=== PATIENT | female | born 1960 | race Caucasian/White ===

== ENCOUNTER 2017-02-11 20:10 | Emergency (ER) | payer MEDICAID ==
[~2017-02-11] VITALS: Ht 160 cm; Wt 57.9 kg
[~2017-02-11 20:10] MED LIST: ASPI-621 PO; ATOR10TA9 PO; ATOR20TA9 PO; CHOL10002 PO; DULO30CA2 PO; EMPA25TA PO; GABA300C10 PO; HYDR-3138 PO; INSU100I11 SQ-INSULIN; INSU100I13 SQ-INSULIN; INSU100V8 SQ; INSU300I SQ; LINA5TAB PO; METF10002 PO; METH750T2 PO; MULT-717 PO; OMEP20CA9 PO; OXYC-223 PO; SITA25TA PO; VITA1TAB19 PO
[2017-02-11] MEDS ORDERED: ONDANSETRON 2MG/ML, 2ML IVPush ONE (20:30)
[2017-02-11] MEDS ORDERED: SODIUM CHLORIDE FLUSH 10ML SYR IVF ONE (20:30)
[2017-02-11] MEDS ORDERED: SODIUM CHLORIDE 0.9% 1,000ML IVBOLUS ONE (20:30)
[2017-02-11] MEDS ORDERED: ONDANSETRON 2MG/ML, 2ML ONE (20:31)
[2017-02-11 21:09] LABS: ASPARTATE AMINO TRANSFERASE 22 U/L (15-37); BLOOD UREA NITROGEN 9 mg/dL (7-18)
[2017-02-11] MEDS ORDERED: KETOROLAC 30 MG/1 ML IVPush ONE (22:00)
[2017-02-11 22:41] VITALS: BP 151/72
[2017-02-11] MEDS ORDERED: KETOROLAC 30 MG/1 ML ONE (23:03)
== END 2017-02-11 22:44 | disposition home or self-care (01) ==
LOC: ED 22:32
DX: R11.2 Nausea with vomiting, unspecified (principal); R10.9 Unspecified abdominal pain; E10.65 Type 1 diabetes mellitus with hyperglycemia; I10 Essential (primary) hypertension; E78.00 Pure hypercholesterolemia, unspecified; Z86.73 Personal history of transient ischemic attack (TIA), and cerebral infarction without residual deficits
CPT/HCPCS: 36415; 71020; 74176; 80053; 81003; 82010; 82800; 82962; 85025; 96361; 96374; 96375; 99285; J1885; J2405; J7030

== ENCOUNTER 2017-07-02 09:24 | Emergency (ER) | payer MEDICAID ==
[~2017-07-02] VITALS: Ht 160 cm; Wt 57.7 kg
[~2017-07-02 09:24] MED LIST changes: -HYDR-3138 PO; +HYDR-3237 PO; -OXYC-223 PO; +OXYC-306 PO
[2017-07-02] MEDS ORDERED: OXYcodone/APAP 5/325MG TABLET PO ONE (10:00)
[2017-07-02] MEDS ORDERED: KETOROLAC 30 MG/1 ML IM ONE (10:00)
[2017-07-02] MEDS ORDERED: OXYcodone/APAP 5/325MG TABLET ONE (10:08)
[2017-07-02] MEDS ORDERED: KETOROLAC 30 MG/1 ML ONE (10:08)
[2017-07-02] MEDS ORDERED: HYDROmorphone 1 MG/ML, 1ML IM ONE (11:00)
[2017-07-02] MEDS ORDERED: ONDANSETRON ODT 4 MG PO ONE (11:00)
[2017-07-02] MEDS ORDERED: ONDANSETRON ODT 4 MG ONE (11:15)
[2017-07-02] MEDS ORDERED: HYDROmorphone 1 MG/ML, 1ML ONE (11:16)
[2017-07-02 11:40] VITALS: BP 138/87
== END 2017-07-02 12:05 | disposition home or self-care (01) ==
LOC: ED 11:32
DX: S20.211A Contusion of right front wall of thorax, initial encounter (principal); W22.8XXA Striking against or struck by other objects, initial encounter; Y93.89 Activity, other specified; Y92.098 Other place in other non-institutional residence as the place of occurrence of the external cause; Y99.8 Other external cause status; Z86.73 Personal history of transient ischemic attack (TIA), and cerebral infarction without residual deficits
CPT/HCPCS: 71020; 72072; 96372; 99284; J1170; J1885; Q0162

== ENCOUNTER 2017-07-10 18:18 | Observation (INO) | payer MEDICAID ==
[~2017-07-10] VITALS: Ht 160 cm; Wt 61.5 kg
[2017-07-10] MEDS ORDERED: ONDANSETRON 2MG/ML, 2ML ONE (19:25)
[2017-07-10] MEDS ORDERED: HYDROmorphone 1 MG/ML, 1ML ONE ×3 (19:25→22:46)
[2017-07-10] MEDS ORDERED: HYDROmorphone 1 MG/ML, 1ML IV ONE (19:30)
[2017-07-10] MEDS ORDERED: SODIUM CHLORIDE FLUSH 10ML SYR IVF ONE (19:30)
[2017-07-10] MEDS ORDERED: ONDANSETRON 2MG/ML, 2ML IVPush ONE (19:30)
[2017-07-10] MEDS ORDERED: SODIUM CHLORIDE 0.9% 1,000ML IVBOLUS ONE (19:30)
[2017-07-10 19:52] LABS: HEMATOCRIT 39.7 % (34.6-47.8); HEMOGLOBIN 12.8 g/dL (11.7-16.4); WHITE BLOOD COUNT 11.6 x10^3/uL (3.4-10)
[2017-07-10 20:01] LABS: ASPARTATE AMINO TRANSFERASE 27 U/L (15-37); BLOOD UREA NITROGEN 15 mg/dL (7-18)
[2017-07-10] MEDS ORDERED: HYDROmorphone 1 MG/ML, 1ML IM ONE (21:00)
[2017-07-10] MEDS ORDERED: HYDROmorphone 1 MG/ML, 1ML IVPush PRN (22:30)
[2017-07-10] MEDS ORDERED: CEFTRIAXONE PMX 1GM/50ML 50 ML IV ONE (22:30)
[2017-07-10] MEDS: CEFTRIAXONE PMX 1GM/50ML 50 ML IV SCH (22:30)
[2017-07-10] MEDS ORDERED: AZITHROMYCIN 500 MG in SODIUM CHLORIDE 0.9% 250 ML IV ONE (22:30)
[2017-07-10] MEDS ORDERED: CEFTRIAXONE PMX 1GM/50ML 50 ML ONE (22:46)
[2017-07-10] MEDS ORDERED: POLYETHYLENE GLYCOL 17 GM PACKET PO PRN (23:00)
[2017-07-10] MEDS: INSULIN DETEMIR 100 UNITS/ML, PEN SQ-INSULIN SCH (23:00)
[2017-07-10] MEDS ORDERED: GUAIFENESIN/DM 200-20MG, 10ML UDC PO PRN (23:00)
[2017-07-10] MEDS ORDERED: ONDANSETRON 2MG/ML, 2ML IVPush PRN (23:00)
[2017-07-10] MEDS ORDERED: ACETAMINOPHEN 325 MG TABLET PO PRN (23:00)
[2017-07-10] MEDS ORDERED: DOCUSATE 100 MG CAPSULE PO PRN (23:00)
[2017-07-10] MEDS: INSULIN ASPART 100 UNITS/ML, PEN SQ-INSULIN SCH (23:00)
[2017-07-10 23:30] VITALS: BP 159/94
[2017-07-11] MEDS: AZITHROMYCIN 500 MG in SODIUM CHLORIDE 0.9% 250 ML IV SCH ×2 (00:30→23:51)
[2017-07-11] MEDS: POTASSIUM CHLORIDE 20 MEQ in SODIUM CHLORIDE 0.9% 1,000 ML IV SCH ×2 (00:30→13:13)
[2017-07-11] MEDS: ENOXAPARIN 40 MG/0.4 ML SQ SCH ×2 (00:31→20:52)
[2017-07-11] MEDS: metFORMIN 500 MG TABLET PO SCH ×3 (00:31→20:52)
[2017-07-11] MEDS: morphine SULFATE 10 MG/ML, 1ML IVPush PRN ×2 (01:22→06:12)
[2017-07-11] MEDS: OXYcodone/APAP 5/325MG TABLET PO PRN ×4 (02:08→20:52)
[2017-07-11 02:31] VITALS: BP 118/77
[2017-07-11 05:46] LABS: BLOOD UREA NITROGEN 11 mg/dL (7-18)
[2017-07-11 05:56] LABS: IS PT STATUS REG ER OR PRE ER? NO
[2017-07-11] MEDS: ASPIRIN 81 MG TABLET EC PO SCH (06:11)
[2017-07-11] MEDS: INSULIN ASPART 100 UNITS/ML, PEN SQ-INSULIN SCH ×4 (07:00→20:44)
[2017-07-11 07:58] VITALS: BP 132/78
[2017-07-11] MEDS: SENNA/DOCUSATE TABLET PO SCH (08:56)
[2017-07-11] MEDS ORDERED: Empagliflozin (Jardiance) 25 MG) HOMEMEDPO SCH (09:00)
[2017-07-11] MEDS ORDERED: SITAGLIPTIN 25MG TABLET PO SCH (09:00)
[2017-07-11] MEDS: KETOROLAC 30 MG/1 ML IM PRN ×2 (09:48→18:34)
[2017-07-11 13:57] VITALS: BP 116/74
[2017-07-11 17:09] VITALS: BP 97/60
[2017-07-11 20:34] VITALS: BP 153/83
[2017-07-11] MEDS: CEFTRIAXONE PMX 1GM/50ML 50 ML IV SCH (20:52)
[2017-07-11] MEDS: INSULIN DETEMIR 100 UNITS/ML, PEN SQ-INSULIN SCH (20:53)
[2017-07-11] MEDS ORDERED: ATORVASTATIN 20 MG TABLET PO SCH (21:00)
[2017-07-12] MEDS: KETOROLAC 30 MG/1 ML IM PRN ×2 (00:48→11:54)
[2017-07-12 01:24] VITALS: BP 136/82
[2017-07-12 05:16] LABS: HEMATOCRIT 34.6 % (34.6-47.8); HEMOGLOBIN 11.4 g/dL (11.7-16.4); WHITE BLOOD COUNT 7.9 x10^3/uL (3.4-10)
[2017-07-12] MEDS: ASPIRIN 81 MG TABLET EC PO SCH (05:46)
[2017-07-12] MEDS: OXYcodone/APAP 5/325MG TABLET PO PRN (05:46)
[2017-07-12] MEDS: INSULIN ASPART 100 UNITS/ML, PEN SQ-INSULIN SCH ×2 (07:00→11:00)
[2017-07-12 07:39] VITALS: BP 128/77
[2017-07-12] MEDS: metFORMIN 500 MG TABLET PO SCH (09:22)
[2017-07-12] MEDS: SENNA/DOCUSATE TABLET PO SCH (09:22)
[2017-07-12 12:12] VITALS: BP 147/74
[2017-07-12] MEDS ORDERED: IBUP-1222 PO (12:55)
[2017-07-12] MEDS ORDERED: HYDR-3240 PO (12:57)
[2017-07-12] MEDS ORDERED: AZIT500T5 PO (12:59)
[2017-07-12] MEDS ORDERED: CEFD300C37 PO (12:59)
== END 2017-07-12 14:56 | disposition home or self-care (01) ==
LOC: ED 19:44 → EDIP 22:09 → INTOOBSV 22:22 → EDIP 22:22 → UNDOADMOB 22:22 → 4WST 23:26 → EDIP 23:26 → 4WST 23:26 → DCLOUNGE 07-12 14:45
PROVIDERS: ADMIT Family Medicine; ATTEND Family Medicine
DX: S20.211A Contusion of right front wall of thorax, initial encounter (principal); W19.XXXA Unspecified fall, initial encounter; E11.40 Type 2 diabetes mellitus with diabetic neuropathy, unspecified; E78.5 Hyperlipidemia, unspecified; F17.200 Nicotine dependence, unspecified, uncomplicated; J18.9 Pneumonia, unspecified organism; D47.3 Essential (hemorrhagic) thrombocythemia; I10 Essential (primary) hypertension; Y99.8 Other external cause status; Y92.89 Other specified places as the place of occurrence of the external cause; Y93.89 Activity, other specified
CPT/HCPCS: 36415; 71250; 80048; 80053; 82962; 83605; 83735; 84145; 84484; 85025; 87040; 93005; 96361; 96365; 96366; 96367; 96372; 96375; 96376; 99285; G0378; J0456; J0696; J1170; J1650; J1815; J1885; J2270; J2405; J3480; J7030; J7050; 90472

== ENCOUNTER 2018-01-18 15:02 | Emergency (ER) | payer MEDICAID ==
[~2018-01-18] VITALS: Ht 160 cm; Wt 58.0 kg
[~2018-01-18 15:02] MED LIST changes: +AZIT500T5 PO; +CEFD300C37 PO; +HYDR-3240 PO; +IBUP-1222 PO
[2018-01-18 15:03] VITALS: BP 131/83
[2018-01-18] MEDS ORDERED: DEXAMETHASONE 4 MG TABLET PO ONE (15:30)
[2018-01-18] MEDS ORDERED: DEXAMETHASONE 4 MG TABLET ONE (15:33)
[2018-01-18 16:13] LABS: BASOPHILS # (AUTO) 0.02 x10^3/uL (0-0.1); BASOPHILS % (AUTO) 0 % (0-1); EOSINOPHILS # (AUTO) 0.24 x10^3/uL (0-0.4); EOSINOPHILS % (AUTO) 3 % (1-7); LYMPHOCYTES # (AUTO) 2.51 x10^3/uL (1-3.4); LYMPHOCYTES % (AUTO) 26 % (22-44); MD NO; MEAN CORPUSCULAR HEMOGLOBIN 27.1 pg (27.0-34.8); MEAN CORPUSCULAR HGB CONC 32.5 g/dL (32.4-35.8); MEAN CORPUSCULAR VOLUME 83.4 fL (80-100); MEAN PLATELET VOLUME 9.4 fL (7.4-10.4); MONOCYTES # (AUTO) 0.47 x10^3/uL (0.2-0.8); MONOCYTES % (AUTO) 5 % (2-9); NEUTROPHILS # (AUTO) 6.62 x10^3/uL (1.8-6.8); NEUTROPHILS % (AUTO) 67 % (42-75); PLATELET COUNT 296 x10^3/uL (130-400); RED BLOOD COUNT 4.68 x10^6/uL (3.82-5.3); RED CELL DISTRIBUTION WIDTH 15.4 % (9.6-15.2)
== END 2018-01-18 16:59 | disposition home or self-care (01) ==
LOC: ED 16:33
DX: J02.9 Acute pharyngitis, unspecified (principal); G89.29 Other chronic pain; E11.40 Type 2 diabetes mellitus with diabetic neuropathy, unspecified; I10 Essential (primary) hypertension; Z86.73 Personal history of transient ischemic attack (TIA), and cerebral infarction without residual deficits
CPT/HCPCS: 36415; 70360; 85025; 87081; 87880; 99285

== ENCOUNTER 2018-04-05 17:14 | Emergency (ER) | payer MEDICAID ==
[~2018-04-05] VITALS: Ht 160 cm; Wt 59.6 kg
[2018-04-05 17:55] LABS: BASOPHILS # (AUTO) 0.03 x10^3/uL (0-0.1); BASOPHILS % (AUTO) 0 % (0-1); EOSINOPHILS # (AUTO) 0.18 x10^3/uL (0-0.4); EOSINOPHILS % (AUTO) 2 % (1-7); LYMPHOCYTES # (AUTO) 2.93 x10^3/uL (1-3.4); LYMPHOCYTES % (AUTO) 30 % (22-44); MD NO; MEAN CORPUSCULAR HEMOGLOBIN 27.5 pg (27.0-34.8); MEAN CORPUSCULAR HGB CONC 33.2 g/dL (32.4-35.8); MEAN CORPUSCULAR VOLUME 82.8 fL (80-100); MEAN PLATELET VOLUME 9.1 fL (7.4-10.4); MONOCYTES # (AUTO) 0.53 x10^3/uL (0.2-0.8); MONOCYTES % (AUTO) 6 % (2-9); NEUTROPHILS # (AUTO) 5.99 x10^3/uL (1.8-6.8); NEUTROPHILS % (AUTO) 62 % (42-75); PLATELET COUNT 292 x10^3/uL (130-400); RED BLOOD COUNT 4.89 x10^6/uL (3.82-5.3); RED CELL DISTRIBUTION WIDTH 14.5 % (9.6-15.2)
[2018-04-05 18:06] LABS: ALBUMIN 3.7 g/dL (3.4-5.0); ANION GAP 7 mmol/L (5-15); CALCIUM 9.4 mg/dL (8.5-10.1); CHLORIDE 107 mmol/L (98-107)
[2018-04-05 18:09] LABS: MICROSCOPIC AUTO
[2018-04-05 18:10] LABS: CULTURE INDICATED? YES
[2018-04-05 18:13] LABS: ALANINE AMINOTRANSFERASE 28 U/L (12-78); ALKALINE PHOSPHATASE 67 U/L (45-117); BILIRUBIN,TOTAL 0.7 mg/dL (0.2-1.0); CREATININE 0.72 mg/dL (0.55-1.02); TOTAL PROTEIN 7.8 g/dL (6.4-8.2)
[2018-04-05 18:31] VITALS: BP 132/72
== END 2018-04-05 19:49 | disposition home or self-care (01) ==
LOC: ED 18:14
DX: K29.00 Acute gastritis without bleeding (principal); N30.00 Acute cystitis without hematuria; G89.29 Other chronic pain; E11.40 Type 2 diabetes mellitus with diabetic neuropathy, unspecified; I10 Essential (primary) hypertension; E78.00 Pure hypercholesterolemia, unspecified; F17.200 Nicotine dependence, unspecified, uncomplicated; Z90.710 Acquired absence of both cervix and uterus; Z86.73 Personal history of transient ischemic attack (TIA), and cerebral infarction without residual deficits
CPT/HCPCS: 36415; 76700; 80053; 81001; 83690; 85025; 87077; 87086; 87186; 99285

== ENCOUNTER 2019-01-01 19:15 | Emergency (ER) | payer MEDICAID ==
[~2019-01-01] VITALS: Ht 160 cm; Wt 64.1 kg
[~2019-01-01 19:15] MED LIST changes: -ASPI-621 PO; +ASPI81TA45 PO; +ATOR20TA37 PO; -ATOR20TA9 PO
--- NOTE | 2019-01-01 19:35 | NUR ---
PT RESTING ON GURNEY WEARING A MASK. HAVING RUQ PAIN FOR PAST 3 DAYS AND ALSO HAS A COUGH.
[2019-01-01 20:00] LABS: BASOPHILS # (AUTO) 0.02 x10^3/uL (0-0.1); BASOPHILS % (AUTO) 0 % (0-1); EOSINOPHILS # (AUTO) 0.32 x10^3/uL (0-0.4); EOSINOPHILS % (AUTO) 3 % (1-7); LYMPHOCYTES # (AUTO) 3.23 x10^3/uL (1-3.4); LYMPHOCYTES % (AUTO) 30 % (22-44); MD NO; MEAN CORPUSCULAR HEMOGLOBIN 26.1 pg (27.0-34.8); MEAN CORPUSCULAR HGB CONC 32.1 g/dL (32.4-35.8); MEAN CORPUSCULAR VOLUME 81.3 fL (80-100); MONOCYTES % (AUTO) 5 % (2-9); NEUTROPHILS # (AUTO) 6.57 x10^3/uL (1.8-6.8); NEUTROPHILS % (AUTO) 62 % (42-75); PLATELET COUNT 254 x10^3/uL (130-400); RED CELL DISTRIBUTION WIDTH 15.9 % (9.6-15.2)
--- NOTE | 2019-01-01 20:01 | NUR ---
URINE SAMPLE COLLECTED AND WALKED OVER TO LAB.
[2019-01-01 20:02] LABS: ALANINE AMINOTRANSFERASE 35 U/L (12-78); ALBUMIN 3.7 g/dL (3.4-5.0); ANION GAP 7 mmol/L (5-15); CHLORIDE 108 mmol/L (98-107); CREATININE 0.77 mg/dL (0.55-1.02)
[2019-01-01 20:07] LABS: ALKALINE PHOSPHATASE 78 U/L (45-117); BILIRUBIN,TOTAL 0.3 mg/dL (0.2-1.0); TOTAL PROTEIN 7.2 g/dL (6.4-8.2); TROPONIN I < 0.015 ng/mL (0.000-0.045)
[2019-01-01] MEDS ORDERED: SODIUM CHLORIDE FLUSH 10ML SYR IVF ONE (20:30)
--- NOTE | 2019-01-01 20:52 | NUR ---
URINE SAMPLE REJECTED. INFORMED PT NEED ANOTHER SAMPLE.
--- NOTE | 2019-01-01 21:14 | NUR ---
PT TAKEN TO CT.
[2019-01-01] MEDS ORDERED: OMNIPAQUE 350 MG/ML, 100ML BOTTLE ONE (21:31)
--- NOTE | 2019-01-01 21:33 | NUR ---
PT BACK FROM IMAGING. NEW URINE SAMPLE COLLECTED AND SENT.
[2019-01-01 21:44] LABS: MICROSCOPIC NOT IND
[2019-01-01 21:47] LABS: CULTURE INDICATED? NO
[2019-01-01 22:02] VITALS: BP 124/71
--- NOTE | 2019-01-01 22:02 | NUR ---
Patient/Caregiver given discharge instructions and they have confirmed that they understand the instructions. Patient ambulatory with steady gait.
== END 2019-01-01 22:05 | disposition home or self-care (01) ==
LOC: ED 20:15
DX: J06.9 Acute upper respiratory infection, unspecified (principal); R07.89 Other chest pain; R10.11 Right upper quadrant pain; E78.00 Pure hypercholesterolemia, unspecified; M54.9 Dorsalgia, unspecified; G89.29 Other chronic pain; I10 Essential (primary) hypertension; Z86.73 Personal history of transient ischemic attack (TIA), and cerebral infarction without residual deficits; Z90.710 Acquired absence of both cervix and uterus
CPT/HCPCS: 36415; 71046; 71275; 80053; 81003; 83690; 84484; 85025; 85379; 93005; 99284; Q9967

== ENCOUNTER 2019-11-10 13:58 | Emergency (ER) | payer MEDICAID ==
[~2019-11-10] VITALS: Ht 160 cm; Wt 63.7 kg
[~2019-11-10 13:58] MED LIST changes: +AZIT500T10 PO; -AZIT500T5 PO
[2019-11-10 14:01] VITALS: BP 130/70
[2019-11-10 14:58] LABS: MEAN CORPUSCULAR HEMOGLOBIN 26.2 pg (27.0-34.8); MEAN CORPUSCULAR HGB CONC 32.1 g/dL (32.4-35.8); MEAN CORPUSCULAR VOLUME 81.6 fL (80-100); MEAN PLATELET VOLUME 9.9 fL (7.4-10.4); PLATELET COUNT 263 x10^3/uL (130-400); RED BLOOD COUNT 4.84 x10^6/uL (3.82-5.3)
[2019-11-10 15:01] LABS: BASOPHILS # (AUTO) 0.05 x10^3/uL (0-0.1); BASOPHILS % (AUTO) 1 % (0-1); EOSINOPHILS # (AUTO) 0.21 x10^3/uL (0-0.4); EOSINOPHILS % (AUTO) 2 % (1-7); LYMPHOCYTES # (AUTO) 2.35 x10^3/uL (1-3.4); LYMPHOCYTES % (AUTO) 24 % (22-44); MONOCYTES # (AUTO) 0.29 x10^3/uL (0.2-0.8); MONOCYTES % (AUTO) 3 % (2-9); NEUTROPHILS # (AUTO) 7.05 x10^3/uL (1.8-6.8); NEUTROPHILS % (AUTO) 71 % (42-75)
[2019-11-10 15:02] LABS: MD NO
[2019-11-10 15:10] LABS: ALANINE AMINOTRANSFERASE 33 U/L (12-78); ALBUMIN 3.5 g/dL (3.4-5.0); ANION GAP 5 mmol/L (5-15); CALCIUM 8.7 mg/dL (8.5-10.1); CHLORIDE 108 mmol/L (98-107); CREATININE 0.83 mg/dL (0.55-1.02)
[2019-11-10 15:12] LABS: ALKALINE PHOSPHATASE 95 U/L (45-117); BILIRUBIN,TOTAL 0.3 mg/dL (0.2-1.0); TOTAL PROTEIN 7.3 g/dL (6.4-8.2)
[2019-11-10] MEDS ORDERED: KETOROLAC 30 MG/1 ML ONE (15:55)
[2019-11-10] MEDS ORDERED: KETOROLAC 30 MG/1 ML IM ONE (16:00)
== END 2019-11-10 16:30 | disposition home or self-care (01) ==
LOC: ED 14:13
DX: S92.354A Nondisplaced fracture of fifth metatarsal bone, right foot, initial encounter for closed fracture (principal); L03.031 Cellulitis of right toe; E11.40 Type 2 diabetes mellitus with diabetic neuropathy, unspecified; E78.00 Pure hypercholesterolemia, unspecified; I10 Essential (primary) hypertension; Z90.710 Acquired absence of both cervix and uterus; X58.XXXA Exposure to other specified factors, initial encounter; Y93.89 Activity, other specified; Y92.89 Other specified places as the place of occurrence of the external cause; Y99.8 Other external cause status
CPT/HCPCS: 36415; 73660; 80053; 85025; 96372; 99284; J1885

== ENCOUNTER 2020-05-03 17:58 | Emergency (ER) | payer MEDICAID ==
[~2020-05-03] VITALS: Ht 160 cm; Wt 64.7 kg
[2020-05-03 18:42] LABS: BASOPHILS # (AUTO) 0.03 x10^3/uL (0-0.1); BASOPHILS % (AUTO) 0 % (0-1); EOSINOPHILS # (AUTO) 0.19 x10^3/uL (0-0.4); EOSINOPHILS % (AUTO) 2 % (1-7); LYMPHOCYTES # (AUTO) 3.21 x10^3/uL (1-3.4); LYMPHOCYTES % (AUTO) 34 % (22-44); MD NO; MEAN CORPUSCULAR HEMOGLOBIN 25.8 pg (27.0-34.8); MEAN CORPUSCULAR HGB CONC 32.4 g/dL (32.4-35.8); MEAN PLATELET VOLUME 10.2 fL (7.4-10.4); MONOCYTES # (AUTO) 0.44 x10^3/uL (0.2-0.8); MONOCYTES % (AUTO) 5 % (2-9); NEUTROPHILS # (AUTO) 5.68 x10^3/uL (1.8-6.8); NEUTROPHILS % (AUTO) 59 % (42-75); PLATELET COUNT 263 x10^3/uL (130-400); RED BLOOD COUNT 5.34 x10^6/uL (3.82-5.3); RED CELL DISTRIBUTION WIDTH 16.4 % (9.6-15.2)
[2020-05-03 18:55] LABS: ALBUMIN 3.9 g/dL (3.4-5.0); ANION GAP 6 mmol/L (5-15); CALCIUM 9.1 mg/dL (8.5-10.1); CHLORIDE 105 mmol/L (98-107); CREATININE 1.27 mg/dL (0.55-1.02)
[2020-05-03] MEDS ORDERED: SODIUM CHLORIDE FLUSH 10ML SYR IVF ONE (19:00)
[2020-05-03] MEDS ORDERED: SODIUM CHLORIDE 0.9% 1,000ML IVBOLUS ONE (19:00)
[2020-05-03 19:03] VITALS: BP 123/57
--- NOTE | 2020-05-03 19:06 | NUR ---
ASSUMED CARE FROM PREVIOUS RN. PT RESTING COMFORTABLY IN GURNEY, DENIES PAIN, ASKING FOR SOMETHING TO DRINK. INSTRUCTED ON BEING NPO. POC UPDATED.
--- NOTE | 2020-05-03 21:10 | NUR ---
DC DONE BY ANOTHER RN
== END 2020-05-03 20:55 | disposition home or self-care (01) ==
LOC: ED 19:06
DX: E11.65 Type 2 diabetes mellitus with hyperglycemia (principal); F17.210 Nicotine dependence, cigarettes, uncomplicated; R53.1 Weakness
CPT/HCPCS: 80048; 82040; 82962; 85025; 96360; 99283; 99406; J7030

== ENCOUNTER 2020-06-17 18:00 | Emergency (ER) | payer MEDICAID ==
[~2020-06-17] VITALS: Ht 157.5 cm; Wt 65.0 kg
[2020-06-17 18:27] LABS: BASOPHILS % (AUTO) 1 % (0-1); EOSINOPHILS % (AUTO) 2 % (1-7); LYMPHOCYTES % (AUTO) 35 % (22-44); MEAN CORPUSCULAR HEMOGLOBIN 25.9 pg (27.0-34.8); MEAN CORPUSCULAR HGB CONC 32.3 g/dL (32.4-35.8); MEAN PLATELET VOLUME 9.5 fL (7.4-10.4); MONOCYTES % (AUTO) 5 % (2-9); NEUTROPHILS % (AUTO) 57 % (42-75); PLATELET COUNT 243 x10^3/uL (130-400); RED CELL DISTRIBUTION WIDTH 15.9 % (9.6-15.2)
[2020-06-17 18:38] LABS: ALANINE AMINOTRANSFERASE 31 U/L (12-78); ALBUMIN 3.7 g/dL (3.4-5.0); ANION GAP 5 mmol/L (5-15); CALCIUM 8.8 mg/dL (8.5-10.1); CHLORIDE 102 mmol/L (98-107); CREATININE 1.24 mg/dL (0.55-1.02)
[2020-06-17 18:42] LABS: ALKALINE PHOSPHATASE 113 U/L (45-117); BILIRUBIN,TOTAL 0.2 mg/dL (0.2-1.0); TOTAL PROTEIN 7.6 g/dL (6.4-8.2)
[2020-06-17 19:46] LABS: MD NO
--- NOTE | 2020-06-17 21:38 | NUR ---
PT C/O SOB X2 DAYS, REPORTS SHE WAS IN CONTACT WITH HER ORIENTAL [employer] THAT WAS EXPOSED TO COVID. PLACED ON VITALS MONITORS, O2 SAT 99% ON RA.
[2020-06-17] MEDS ORDERED: ONDANSETRON 2MG/ML, 2ML ONE (21:49)
[2020-06-17] MEDS ORDERED: MORPHINE SULFATE 4 MG/ML, 1ML ONE ×2 (21:49→23:06)
[2020-06-17] MEDS ORDERED: ONDANSETRON 2MG/ML, 2ML IVPush ONE (22:00)
[2020-06-17] MEDS ORDERED: SODIUM CHLORIDE 0.9% 1,000ML IVBOLUS ONE (22:00)
[2020-06-17] MEDS ORDERED: SODIUM CHLORIDE FLUSH 10ML SYR IVF ONE (22:00)
[2020-06-17 22:06] LABS: TROPONIN I < 0.015 ng/mL (0.000-0.045)
[2020-06-17] MEDS: MORPHINE SULFATE 4 MG/ML, 1ML IVPush PRN ×2 (22:17→23:14)
--- NOTE | 2020-06-17 22:22 | NUR ---
US AT BEDSIDE.
[2020-06-18 00:18] VITALS: BP 134/74
== END 2020-06-18 00:22 | disposition home or self-care (01) ==
LOC: ED 22:34
DX: B34.9 Viral infection, unspecified (principal); R05 Cough; R07.89 Other chest pain; Z20.828 Contact with and (suspected) exposure to other viral communicable diseases; R10.11 Right upper quadrant pain; R94.31 Abnormal electrocardiogram [ECG] [EKG]; E11.9 Type 2 diabetes mellitus without complications
CPT/HCPCS: 36415; 71045; 76700; 80053; 83880; 84484; 85025; 87635; 93005; 96361; 96374; 96375; 96376; 99285; J2270; J2405; J7030

== ENCOUNTER 2020-07-07 10:03 | Emergency (ER) | payer MEDICAID ==
[~2020-07-07] VITALS: Ht 160 cm; Wt 64.9 kg
[2020-07-07 12:05] LABS: BASOPHILS % (AUTO) 1 % (0-1); EOSINOPHILS % (AUTO) 2 % (1-7); LYMPHOCYTES % (AUTO) 25 % (22-44); MEAN CORPUSCULAR HEMOGLOBIN 26.1 pg (27.0-34.8); MEAN CORPUSCULAR HGB CONC 32.3 g/dL (32.4-35.8); MEAN PLATELET VOLUME 9.8 fL (7.4-10.4); MONOCYTES % (AUTO) 4 % (2-9); NEUTROPHILS % (AUTO) 68 % (42-75); PLATELET COUNT 226 x10^3/uL (130-400); RED BLOOD COUNT 5.09 x10^6/uL (3.82-5.3); RED CELL DISTRIBUTION WIDTH 15.3 % (9.6-15.2)
[2020-07-07 12:09] LABS: MD NO
[2020-07-07 12:19] LABS: CHLORIDE 105 mmol/L (98-107)
[2020-07-07 12:27] LABS: ALANINE AMINOTRANSFERASE 33 U/L (12-78); ALBUMIN 3.6 g/dL (3.4-5.0); ALKALINE PHOSPHATASE 107 U/L (45-117); ANION GAP 5 mmol/L (5-15); BILIRUBIN,TOTAL 0.3 mg/dL (0.2-1.0); CALCIUM 8.9 mg/dL (8.5-10.1); CREATININE 0.75 mg/dL (0.55-1.02); TOTAL PROTEIN 7.5 g/dL (6.4-8.2)
[2020-07-07 13:36] VITALS: BP 165/68
--- NOTE | 2020-07-07 13:54 | NUR ---
PT COMES IN C/O COUGHX4 DAYS, INCREASED SOB, LOSS OF APPETITE, SORE THROAT. STATES WAS HERE 06/17 FOR SIMILAR SYMPTOMS, TESTED FOR COVID WITH A NEGATIVE RESULT. STATES 03/17 RUQ ABDOMINAL PAIN, STATES "MAYBE I PULLED SOMETHING WHILE COUGHING SO MUCH". MONITORS CONNECTED. ALL NEEDS MET AT THIS TIME
--- NOTE | 2020-07-07 14:09 | NUR ---
PT DISCHARGED. VERBALIZED UNDERSTANDING OF DISCHARGE INSTRUCTIONS. AMBULATED TO CHECK-OUT. NAD.
== END 2020-07-07 14:11 | disposition home or self-care (01) ==
LOC: ED 13:47
DX: B34.9 Viral infection, unspecified (principal); J02.9 Acute pharyngitis, unspecified; R09.81 Nasal congestion; I10 Essential (primary) hypertension; E11.9 Type 2 diabetes mellitus without complications; E78.00 Pure hypercholesterolemia, unspecified; Z86.718 Personal history of other venous thrombosis and embolism; Z90.710 Acquired absence of both cervix and uterus
CPT/HCPCS: 36415; 71045; 80053; 83690; 85025; 87081; 87880; 99284

== ENCOUNTER 2020-09-05 09:09 | Emergency (ER) | payer MEDICAID ==
[~2020-09-05] VITALS: Ht 160 cm; Wt 67.0 kg
[~2020-09-05 09:09] MED LIST changes: +HYDR-1067 PO; -HYDR-3240 PO; +METH-640 PO; -METH750T2 PO; -OXYC-306 PO; +OXYC1TAB17 PO
--- NOTE | 2020-09-05 09:48 | NUR ---
PT AMBULATORY TO ROOM 27 W/ C/O CP MIDSTERNAL AND BILAT ANKLE SWELLING STARTED THIS AM. PT STATES SHE WENT TO BED LAST NIGHT W/O ISSUES AND AWOKE THIS AM WITH SX. PT DENIES HX CHF. STATES HX DM2 W/ DM NEUROPATHY. PT RESTING ON GURNEY. NADN. MONITORS APPLIED. VSS. WARM BLANKET PROVIDED.
--- NOTE | 2020-09-05 10:29 | NUR ---
PT RESTING ON GURNEY. NADN. [facility].
[2020-09-05 10:43] LABS: BASOPHILS % (AUTO) 1 % (0-1); EOSINOPHILS % (AUTO) 2 % (1-7); LYMPHOCYTES % (AUTO) 27 % (22-44); MEAN CORPUSCULAR HEMOGLOBIN 26.7 pg (27.0-34.8); MEAN CORPUSCULAR HGB CONC 32.2 g/dL (32.4-35.8); MEAN PLATELET VOLUME 9.3 fL (7.4-10.4); MONOCYTES % (AUTO) 5 % (2-9); NEUTROPHILS % (AUTO) 66 % (42-75); PLATELET COUNT 212 x10^3/uL (130-400); RED BLOOD COUNT 4.69 x10^6/uL (3.82-5.3); RED CELL DISTRIBUTION WIDTH 15.5 % (9.6-15.2)
[2020-09-05 10:48] LABS: MD NO
[2020-09-05 10:49] LABS: ALANINE AMINOTRANSFERASE 52 U/L (12-78); ALBUMIN 3.3 g/dL (3.4-5.0); ANION GAP 5 mmol/L (5-15); CALCIUM 9.1 mg/dL (8.5-10.1); CHLORIDE 106 mmol/L (98-107); CREATININE 0.74 mg/dL (0.55-1.02)
[2020-09-05 10:53] LABS: ALKALINE PHOSPHATASE 103 U/L (45-117); BILIRUBIN,TOTAL 0.3 mg/dL (0.2-1.0); TOTAL PROTEIN 6.7 g/dL (6.4-8.2); TROPONIN I < 0.015 ng/mL (0.000-0.045)
--- NOTE | 2020-09-05 11:02 | NUR ---
PT CHART REVIEWED AND PLACED FOR RECHECK.
--- NOTE | 2020-09-05 11:16 | NUR ---
PT RESTING ON GURNEY. NADN. [facility].
[2020-09-05 11:57] VITALS: BP 114/62
== END 2020-09-05 12:00 | disposition home or self-care (01) ==
LOC: ED 11:20
DX: R60.0 Localized edema (principal); R07.2 Precordial pain; R94.31 Abnormal electrocardiogram [ECG] [EKG]; I10 Essential (primary) hypertension; E11.9 Type 2 diabetes mellitus without complications; Z90.710 Acquired absence of both cervix and uterus
CPT/HCPCS: 36415; 71045; 80053; 83880; 84484; 85025; 93005; 99285

== ENCOUNTER 2021-02-10 14:05 | Emergency (ER) | payer MEDICAID ==
[~2021-02-10] VITALS: Ht 160 cm; Wt 69.2 kg
[~2021-02-10 14:05] MED LIST changes: -HYDR-1067 PO; +HYDR-2214 PO
--- NOTE | 2021-02-10 15:55 | NUR ---
PT AMBULATED TO ROOM WITH NO ASSISTANCE. PT CHANGED INTO GOWN.
[2021-02-10] MEDS ORDERED: METHOCARBAMOL 750 MG TABLET ONE (16:08)
[2021-02-10] MEDS ORDERED: KETOROLAC 30 MG/1 ML ONE (16:08)
--- NOTE | 2021-02-10 16:14 | NUR ---
pT MEDICATED AND RESTING. WAITING TO BE EVALUATED BY
[2021-02-10] MEDS ORDERED: KETOROLAC 30 MG/1 ML IM ONE (16:30)
[2021-02-10] MEDS ORDERED: METHOCARBAMOL 750 MG TABLET PO ONE (16:30)
[2021-02-10 17:00] VITALS: BP 156/82
--- NOTE | 2021-02-10 17:10 | NUR ---
PAIN IMPROVED. VSS. PT VERBALIZED UNDERSTANDING OF DISCHARGE AND FOLLOW UP INSTRUCTIONS. PT AMBULATED OUT OF ER WITH NO ASSISTANCE
== END 2021-02-10 17:11 | disposition home or self-care (01) ==
LOC: ED 17:00
DX: M54.42 Lumbago with sciatica, left side (principal); M25.552 Pain in left hip; I10 Essential (primary) hypertension; I70.0 Atherosclerosis of aorta; E11.9 Type 2 diabetes mellitus without complications; G89.29 Other chronic pain; E78.00 Pure hypercholesterolemia, unspecified; Z86.73 Personal history of transient ischemic attack (TIA), and cerebral infarction without residual deficits
CPT/HCPCS: 72110; 73502; 96372; 99284; J1885

== ENCOUNTER 2021-03-22 09:20 | Emergency (ER) | payer MEDICAID ==
[~2021-03-22] VITALS: Ht 160 cm; Wt 68.9 kg
[2021-03-22] MEDS ORDERED: SODIUM CHLORIDE FLUSH 10ML SYR IVF ONE (10:00)
[2021-03-22] MEDS ORDERED: METOCLOPRAMIDE 5 MG/ML, 2ML IVPush ONE (10:00)
[2021-03-22] MEDS ORDERED: DIPHENHYDRAMINE 50 MG/ML, 1ML IVPush ONE (10:00)
[2021-03-22] MEDS ORDERED: DIPHENHYDRAMINE 50 MG/ML, 1ML ONE (10:01)
[2021-03-22] MEDS ORDERED: METOCLOPRAMIDE 5 MG/ML, 2ML ONE (10:01)
--- NOTE | 2021-03-22 10:23 | NUR ---
PT CAME IN [facility] SINCE TUESDAY. STATES SHE HAS BEEN TAKING TYLENOL AROUND THE CLOCK WITH MINIMAL RELIEF. PT MEDICATED PER OCT. LABS DRAWN. IV STARTED. EDUCATED ON PLAN OF CARE
[2021-03-22 10:38] LABS: BASOPHILS % (AUTO) 1 % (0-1); EOSINOPHILS % (AUTO) 2 % (1-7); LYMPHOCYTES % (AUTO) 27 % (22-44); MEAN CORPUSCULAR HEMOGLOBIN 27.3 pg (27.0-34.8); MEAN PLATELET VOLUME 9.5 fL (7.4-10.4); MONOCYTES % (AUTO) 5 % (2-9); NEUTROPHILS % (AUTO) 65 % (42-75); PLATELET COUNT 229 x10^3/uL (130-400); RED BLOOD COUNT 5.22 x10^6/uL (3.82-5.3); RED CELL DISTRIBUTION WIDTH 13.5 % (9.6-15.2)
[2021-03-22 10:43] LABS: ALBUMIN 3.5 g/dL (3.4-5.0); ANION GAP 8 mmol/L (5-15); CALCIUM 9.2 mg/dL (8.5-10.1); CHLORIDE 101 mmol/L (98-107)
[2021-03-22 10:47] LABS: ALANINE AMINOTRANSFERASE 88 U/L (12-78); ALKALINE PHOSPHATASE 112 U/L (45-117); BILIRUBIN,TOTAL 0.4 mg/dL (0.2-1.0); CREATININE 0.92 mg/dL (0.55-1.02); TOTAL PROTEIN 7.5 g/dL (6.4-8.2)
[2021-03-22 11:13] VITALS: BP 159/74
--- NOTE | 2021-03-22 11:14 | NUR ---
PT RESTING IN [facility]. NAD
[2021-03-22] MEDS ORDERED: SODIUM CHLORIDE 0.9% 1,000ML IVBOLUS ONE (12:00)
== END 2021-03-22 13:18 | disposition home or self-care (01) ==
LOC: ED 12:09
DX: R51.9 Headache, unspecified (principal); E11.65 Type 2 diabetes mellitus with hyperglycemia; I10 Essential (primary) hypertension; E11.40 Type 2 diabetes mellitus with diabetic neuropathy, unspecified; E78.00 Pure hypercholesterolemia, unspecified; F17.200 Nicotine dependence, unspecified, uncomplicated; Z86.73 Personal history of transient ischemic attack (TIA), and cerebral infarction without residual deficits
CPT/HCPCS: 36415; 70450; 80053; 85025; 96361; 96374; 96375; 99284; J1200; J2765; J7030

== ENCOUNTER 2021-03-23 18:12 | Emergency (ER) | payer MEDICAID ==
[~2021-03-23] VITALS: Ht 160 cm; Wt 70.0 kg
[2021-03-23] MEDS ORDERED: SODIUM CHLORIDE 0.9% 1,000ML IVBOLUS ONE ×2 (18:30→21:00)
[2021-03-23] MEDS ORDERED: SODIUM CHLORIDE FLUSH 10ML SYR IVF ONE (18:30)
[2021-03-23 18:55] LABS: BASOPHILS % (AUTO) 1 % (0-1); EOSINOPHILS % (AUTO) 2 % (1-7); LYMPHOCYTES % (AUTO) 30 % (22-44); MEAN CORPUSCULAR HGB CONC 32.8 g/dL (32.4-35.8); MEAN PLATELET VOLUME 9.3 fL (7.4-10.4); MONOCYTES % (AUTO) 5 % (2-9); NEUTROPHILS % (AUTO) 62 % (42-75); PLATELET COUNT 231 x10^3/uL (130-400); RED BLOOD COUNT 5.09 x10^6/uL (3.82-5.3); RED CELL DISTRIBUTION WIDTH 13.4 % (9.6-15.2)
[2021-03-23 19:04] LABS: ALANINE AMINOTRANSFERASE 75 U/L (12-78); ALBUMIN 3.4 g/dL (3.4-5.0); ANION GAP 6 mmol/L (5-15); CALCIUM 9.4 mg/dL (8.5-10.1); CHLORIDE 97 mmol/L (98-107); CREATININE 0.94 mg/dL (0.55-1.02)
[2021-03-23 19:06] LABS: ALKALINE PHOSPHATASE 126 U/L (45-117); BILIRUBIN,TOTAL 0.2 mg/dL (0.2-1.0); TOTAL PROTEIN 7.6 g/dL (6.4-8.2)
--- NOTE | 2021-03-23 19:16 | NUR ---
pt sent from UC and high BP, ermd at bedside for eval
[2021-03-23 19:48] LABS: ACETONE, SERUM Negative (Negative)
--- NOTE | 2021-03-23 20:29 | NUR ---
pt up to bathroom with steady gait
[2021-03-23] MEDS ORDERED: INSULIN REGULAR 100 UNITS/ML, 3ML VIAL SQ-INSULIN ONE (21:00)
[2021-03-23] MEDS ORDERED: INSULIN LISPRO SINGLE DOSE, ER SQ-INSULIN ONE (21:23)
--- NOTE | 2021-03-23 21:48 | NUR ---
LEE ANN THOMPSON AT BEDSIDE TO DISCUSS POC
[2021-03-23] MEDS ORDERED: MORPHINE SULFATE 4 MG/ML, 1ML ONE (21:54)
[2021-03-23] MEDS ORDERED: KETOROLAC 30 MG/1 ML ONE (21:54)
[2021-03-23] MEDS ORDERED: ONDANSETRON 2MG/ML, 2ML ONE (21:54)
[2021-03-23] MEDS ORDERED: KETOROLAC 30 MG/1 ML IVPush ONE (22:00)
[2021-03-23] MEDS ORDERED: ONDANSETRON 2MG/ML, 2ML IVPush ONE (22:00)
[2021-03-23] MEDS ORDERED: MORPHINE SULFATE 4 MG/ML, 1ML IVPush PRN (22:00)
[2021-03-23 22:18] LABS: HCT (SEDRATE) 41.9 % (34.6-47.8)
[2021-03-23 22:41] LABS: MICROSCOPIC AUTO
--- NOTE | 2021-03-23 23:06 | NUR ---
pt resting in bed, states headache is better with medication admin. 2nd liter of fluids complete, fsbg [id number] on recheck.
--- NOTE | 2021-03-24 00:21 | NUR ---
LEE ANN PRYOR AT BEDSIDE TO DISCUSS POC
[2021-03-24] MEDS ORDERED: METOCLOPRAMIDE 5 MG/ML, 2ML IVPush ONE (00:30)
[2021-03-24] MEDS ORDERED: INSULIN REGULAR 100 UNITS/ML, 3ML VIAL SQ-INSULIN ONE (00:30)
[2021-03-24] MEDS ORDERED: DIPHENHYDRAMINE 50 MG/ML, 1ML IVPush ONE (00:30)
[2021-03-24] MEDS ORDERED: METOCLOPRAMIDE 5 MG/ML, 2ML ONE (00:31)
[2021-03-24] MEDS ORDERED: DIPHENHYDRAMINE 50 MG/ML, 1ML ONE (00:31)
[2021-03-24] MEDS ORDERED: INSULIN LISPRO SINGLE DOSE, ER SQ-INSULIN ONE (00:32)
--- NOTE | 2021-03-24 01:35 | NUR ---
new PIV placed by Art HAMILTON for CTA, pt taken to CT at this time
--- NOTE | 2021-03-24 01:49 | NUR ---
pt back from CT at this time,
[2021-03-24] MEDS ORDERED: OMNIPAQUE 350 MG/ML, 75ML BOTTLE ONE (01:58)
--- NOTE | 2021-03-24 02:07 | NUR ---
FSBG [id number] ON RECHECK
--- NOTE | 2021-03-24 02:15 | NUR ---
LEE ANN PRYOR AT BEDSIDE TO DISCUSS POC
[2021-03-24 02:35] VITALS: BP 142/80
--- NOTE | 2021-03-24 02:49 | NUR ---
report given to oc jeffries
== END 2021-03-24 03:12 | disposition home or self-care (01) ==
LOC: ED 19:57
DX: R51.9 Headache, unspecified (principal); R42 Dizziness and giddiness; I10 Essential (primary) hypertension; E11.9 Type 2 diabetes mellitus without complications; E78.00 Pure hypercholesterolemia, unspecified; F17.200 Nicotine dependence, unspecified, uncomplicated; Z86.73 Personal history of transient ischemic attack (TIA), and cerebral infarction without residual deficits
CPT/HCPCS: 36415; 70496; 80053; 81001; 82010; 82962; 85025; 85651; 87086; 93005; 96361; 96374; 96375; 99285; J1200; J1885; J2270; J2405; J2765; J7030; Q9967; 87186